=== PATIENT | male | born 1980 | race Two or more races ===

== ENCOUNTER 2021-07-11 06:46 | Emergency (ER) | payer OTHER, SELFPAY ==
[2021-07-11 06:53] VITALS: BP 126/84; PULSE 102; RESP 15; TEMP 36.1; O2SAT 98; BMI 28.3
--- NOTE | 2021-07-11 08:51 | ED_ITS ---
HPI - Allergic Reaction General Chief complaint: Allergic Reaction Stated complaint: allergic reaction to granola bar? rash all over Time Seen by Provider: 07/11/21 08:05 Source: patient Mode of arrival: ambulatory History of Present Illness HPI narrative: 41-year-old male with no significant past medical history presenting to the ED complaining of allergic reaction at 3:00 a.m. s/p eating granola bar with almonds. Reports hives to entire torso and upper/lower extremities. Admits to taking 25mg of Benadryl [employer] with symptomatic improvement. Denies known allergies or similar symptoms in the past. Denies oral swelling, drooling, coughing, wheezing, SOB MD complaint: allergic reaction and hives Onset (ago): hour(s) Exposure: food Related Data Previous Rx's Medication Instructions Recorded diphenhydramine HCl 25 mg capsule 25 mg PO Q6H PRN #14 cap 07/11/21 (Benadryl) prednisone 20 mg tablet 40 mg PO DAILY 4 Days #8 tab 07/11/21 prednisone 20 mg tablet 40 mg PO DAILY 5 Days #10 tab 07/11/21 Allergies Allergy/AdvReac Type Severity Reaction Status Date / Time almond [ALMOND] Allergy Unknown SCRATCHY Verified 07/11/21 06:59 THROAT SEAFOOD Allergy Unknown SWELLING/RA Uncoded 03/15/20 19:31 Review of Systems Review of Systems: Constitutional: No Fever, No Chills ENT/Mouth: No Ear Pain, No Nasal Congestion, No Sinus Pain, No Hoarseness, No sore throat, No Swallowing Difficulty Cardiovascular: No Chest Pain, No SOB Respiratory: No Cough, No Sputum, No Wheezing Gastrointestinal: No Nausea, No Vomiting, No Abdominal pain Musculoskeletal: No joint pain, No Myalgias, No Joint Swelling Skin: No Skin Lesions, + rash Neuro: No Weakness Yes all other systems are reviewed and are negative [facility] Past Medical History Attestation statement: The following information was validated with the patient. Social History Social History Advance Directives: Yes Advance Directives Information Provided: Yes Advance Directives on File: No Physical Exam Vital Signs: Vital Signs: Last Vital Signs Temp 96.9 F 07/11/21 06:53 Pulse 102 H 07/11/21 06:53 Resp 15 07/11/21 06:53 BP 126/84 07/11/21 06:53 Pulse Ox 98 07/11/21 06:53 BMI result Body Mass Index 28.3 Const: General: cooperative, healthy appearing and no acute distress Orientation/consciousness: patient oriented x3 Limitations: no limitations HENMT: Head: Yes normal to inspection Ears: hearing grossly normal bilaterally General nose exam: Normal external nose present Face and sinus: Yes normal facial exam Throat: Yes posterior oropharynx normal, Yes tonsils normal, Yes uvula midline, No peritonsillar mass, No uvula laterally displaced and No uvular edema Eyes: General: appearance normal, both eyes and all related structures EOM: EOMs intact bilaterally Neck: Neck: Yes normal visual inspection, Yes no meningeal signs, Yes trachea midline and No anterior neck swelling Resp: Effort & Inspection: normal respiratory effort, no respiratory distress and no stridor Auscultation: clear to auscultation bilaterally, no crackles, no rales, no rhonchi and no wheezes Cardio: Rate: regular rate Heart sounds: S1 normal heart sound present and S2 normal heart sound present Skin: Other: + faint hives noted to torso. No palm/sole involvement Wounds: no wounds Neuro: General: patient oriented x3 and no meningeal signs Gait exam (Neuro): Normal gait present Extrem: General: Yes normal to inspection MDM - Allergic Reaction MDM Narrative Medical decision making narrative: 41-year-old male with no significant past medical history presenting to the ED complaining of allergic reaction at 3:00 a.m. s/p eating granola bar with almonds. On exam mildly tachycardic, NAD, nontoxic appearing, talking in complete sentences, no respiratory distress, f aint hives noted to torso. No intraoral involvement, uvula midline, lungs CTA. Likely allergic reaction Plan: Prednisone, patient requesting COVID-19 testing Differential Diagnosis Differential diagnosis: Likely allergic reaction Medical Records Attestation: I reviewed the patient's medical records. Lab Data Attestation: I reviewed the patient's lab results. Discharge Plan Discharge Clinical Impression: Allergic reaction Qualifiers: Encounter type: initial encounter Qualified Code(s): T78.40XA - Allergy, unspecified, initial encounter Patient Disposition: Home, Self-Care Instructions: General Allergic Reaction (ED), Allergy Testing (ED) Additional Instructions: Prednisone as a steroid, please take as prescribed this will help with Allergic reaction. Her given the 1st dose today in the emergency department. In addition take Benadryl as needed every 6 hours for allergy symptoms. You should follow-up with an software project manager for allergy testing. If he develops shortness of breath, throat closing sensation, oral swelling, Diffuse worsening hives please return to the ED Prescriptions: New prednisone 20 mg tablet 40 mg PO DAILY 5 Days Qty: 10 RF: 0 diphenhydramine HCl [Benadryl] 25 mg capsule 25 mg PO Q6H PRN (Reason: allergic reaction) Qty: 14 RF: 0 prednisone 20 mg tablet 40 mg PO DAILY 4 Days Qty: 8 RF: 0 Referrals: Sylvester Hicks DO [Physician] - 2 days
[2021-07-11] MEDS: predniSONE 20 MG TABLET 40 MG PO (09:04)
--- NOTE | 2021-07-11 09:13 | PC.NURSE ---
PT REFUSED PO PREDNISONE. HE BECAME AGITATED ABOUT NOT HAVING HIS COVID TEST. THIS RN UNAWARE THAT HE REQUIRED ONE. FITZPATRICK SWAB OBTAINED. PT DISCHARGED PROVIDER STATES SHE WILL CALL WITH RESULTS. CONTINUED TO REFUSE MEDS.
[2021-07-11 09:52] LABS: COVID-19 Test Negative (Negative)
== END 2021-07-11 09:31 | disposition home or self-care (01) ==
PROVIDERS: Physician Assistant; Emergency Provider Emergency Medicine
DX: L50.9 Urticaria, unspecified (principal); R00.0 Tachycardia, unspecified; T78.1XXA Other adverse food reactions, not elsewhere classified, initial encounter; X58.XXXA Exposure to other specified factors, initial encounter; Z20.822 Contact with and (suspected) exposure to COVID-19
CPT/HCPCS: 87635; 99283

== ENCOUNTER 2021-12-22 03:30 | Emergency (ER) | payer OTHER, SELFPAY ==
[2021-12-22 04:07] VITALS: BP 131/82; PULSE 82; RESP 16; TEMP 36.8; O2SAT 98; BMI 28.3
--- NOTE | 2021-12-22 04:40 | ED.DENTAL ---
HPI - Dental/Oral General Chief complaint: Dental/Oral Stated complaint: Dental Pain Time Seen by Provider: 12/22/21 04:33 Source: patient Mode of arrival: ambulatory Limitations: no limitations History of Present Illness HPI Narrative: dental pain facial swelling yesterday Location: Tooth # (3/4) Onset (ago): hour(s) (yesterday) Duration: worsening Severity: moderate Relieving factors: nothing Exacerbating factors: chewing and cold Context: history of dental caries Associated symptoms: gum swelling Treatment prior to arrival: none Related Data Previous Rx's Medication Instructions Recorded diphenhydramine HCl 25 mg capsule 25 mg PO Q6H PRN allergic reaction 07/11/21 (Benadryl) #14 caps prednisone 20 mg tablet 40 mg PO DAILY 4 days #8 tabs 07/11/21 prednisone 20 mg tablet 40 mg PO DAILY 5 days #10 tabs 07/11/21 amoxicillin 875 mg-potassium 1 tab PO BID #14 tabs 12/22/21 clavulanate 125 mg tablet Allergies Allergy/AdvReac Type Severity Reaction Status Date / Time almond [ALMOND] Allergy Unknown SCRATCHY Verified 07/11/21 06:59 THROAT SEAFOOD Allergy Unknown SWELLING/RA Uncoded 03/15/20 19:31 Review of Systems Review of Systems: Constitutional : No Fever, No Chills ENT/Mouth : No swallowing difficulty, no change in voice, positive dental pain, positive jaw pain, positive facial swelling Eyes: No Eye Pain, No Swelling Cardiovascular : No Chest Pain, No SOB Respiratory : No Cough, No Sputum Gastrointestinal : No Nausea, No Vomiting, No Diarrhea Genitourinary : No Dysuria Musculoskeletal : No Myalgias Skin : No rash Neuro : No Weakness, No Numbness, No Headache PMFSH Past Medical History Attestation statement: The following information was validated with the patient. Medical History No pertinent past medical history Social History Social History (Updated 12/22/21 @ 04:42 by Jolene Sim DO) Patient Tobacco Use Status: Tobacco use Unknown Advance Directives: No Physical Exam Vital Signs: Vital Signs: Last Vital Signs Temp 98.3 F 12/22/21 04:07 Pulse 82 12/22/21 04:07 Resp 16 12/22/21 04:07 BP 131/82 12/22/21 04:07 Pulse Ox 98 12/22/21 04:07 O2 Del Method 12/22/21 04:07 BMI result Body Mass Index 28.3 Appearance: Alert. Oriented X3. No acute distress. Eyes: Pupils equal, round and reactive to light. ENT: R cheek swelling noted but no erythema no trismus no muffled voice tolerating secretions dental caries noted upper R molars, fluctuant area noted R upper molars Neck: Normal inspection. Neck supple. CVS: Pulses normal. Respiratory: No respiratory distress. Abdomen: atraumatic Skin: Skin warm and dry. Normal skin color. Extremities: No lower extremity edema. Neuro: Oriented X 3. No motor deficit. No sensory deficit. MDM - Dental/Oral MDM Narrative Medical decision making narrative: 41 yo male otherwise healthy here with c/o R upper molar caries now with swelling to face likely abscess at this time will start on oral antibiotics and attempt to I+D area. no trismus no concern for deeper space infection. Procedures Abscess I/D Site: oral (right upper molar) Side (if applicable): right Local Anesthetic: lidocaine 1% Amount of anesthesia used (mL): 2 Technique: needle aspiration Amount of fluid expressed (mL): 3 Sent for culture/gram staining?: No Irrigation: No Packing used?: none Discharge Plan Discharge Clinical Impression: Dental abscess Patient Disposition: Home, Self-Care Instructions: Dental Abscess (ED) Additional Instructions: return to ED for any worsening symptoms or concerns return for worsening swelling fevers, or any other concerns follow up with a dentist Prescriptions: New amoxicillin-pot clavulanate 875-125 mg tablet 1 tab PO BID Qty: 14 0RF No Action prednisone 20 mg tablet 40 mg PO DAILY 5 Days Qty: 10 0RF diphenhydramine HCl [Benadryl] 25 mg capsule 25 mg PO Q6H PRN (Reason: allergic reaction) Qty: 14 0RF prednisone 20 mg tablet 40 mg PO DAILY 4 Days Qty: 8 0RF
[2021-12-22] MEDS: Lidocaine HCl 1 % MPF 5 ML VIAL SUBCUT (04:44)
[2021-12-22] MEDS: Amoxicillin/Potassium Clav 875 MG TABLET PO (04:44)
== END 2021-12-22 05:48 | disposition home or self-care (01) ==
PROVIDERS: Emergency Provider Emergency Medicine
DX: K04.7 Periapical abscess without sinus (principal)
CPT/HCPCS: 41800; 99282; 99283; 99284

== ENCOUNTER 2022-11-06 08:30 | Emergency (ER) | payer OTHER, SELFPAY ==
[2022-11-06 08:42] VITALS: BP 114/75; PULSE 82; RESP 19; TEMP 36.8; BMI 29.9
--- NOTE | 2022-11-06 09:09 | ED.GENADULT ---
HPI - General Adult General Chief complaint: Animal Bite Stated complaint: spider bite Time Seen by Provider: 11/06/22 09:01 Source: patient Mode of arrival: ambulatory Limitations: no limitations History of Present Illness HPI narrative: Patient presents with insect bite to the right forearm. Symptoms started 2 days ago. He reported significant swelling which has gotten better. He also reports that having drain pus. Denies any fevers or chills. Pain is mild to moderate. Worse with palpation. He does not radiate. There is no numbness or tingling. Denies any fevers or chills. He did not see what kind of insect bit him. Related Data Previous Rx's Medication Instructions Recorded doxycycline hyclate 100 mg tablet 100 mg PO BID #20 tabs 11/06/22 Allergies Allergy/AdvReac Type Severity Reaction Status Date / Time almond [ALMOND] Allergy Unknown SCRATCHY Verified 07/11/21 06:59 THROAT SEAFOOD Allergy Unknown SWELLING/RA Uncoded 03/15/20 19:31 [facility] Past Medical History Medical History No pertinent past medical history Social History Social History Patient Tobacco Use Status: Tobacco use Unknown Advance Directives: No Physical Exam ED Vital Signs: Vital Signs - 24 hr 11/06/22 08:42 Temperature 98.3 F Pulse Rate 82 Respiratory Rate 19 Blood Pressure 114/75 Oxygen Delivery Method Room Air BMI result Body Mass Index 29.9 GEN: Well developed, no acute distress, alert, oriented HEENT: Normocephalic, atraumatic, normal external ears, nose appears normal Eyes: Normal to appearance Neck: Supple, no lymphadenopathy Respiratory: Talks in complete sentences, no respiratory distress Extremities: No clubbing cyanosis or edema Neurologic: No focal neurologic deficits, cranial nerves 2-12 intact, gait normal Skin: Right proximal volar forearm area of induration, redness and swelling. There is no fluctuance surface. Course Course Course Narrative: 42-year-old male presents with cellulitis/abscess of the right forms following a spider or other insect bite. He is otherwise neurovascular intact. There is no fevers or chills. There is no lymphangitis spread. Will start patient on oral antibiotics. Patient would like to defer an I&D at this time. He will return for any worsening symptoms. Discharge instructions were discussed with the patient. All questions were addressed and answered Medical Decision Making Medical Decision Making MDM Narrative: 42-year-old male presents with an insect bite to the right volar forearm. Area was indurated and erythematous. There were no fluctuance surfaces. Patient deferred I&D at this time. He will do warm compresses several times daily, oral antibiotics, Tylenol, ibuprofen as needed for pain he was given strict return instructions. Differential Diagnosis Differential Diagnoses: The differential diagnosis associated with the presentation includes (Inflammatory reaction, cellulitis, abscess) Prescription Management I considered prescription management with: Pain Medication and Antibiotic Discharge Plan Discharge Clinical Impression: Spider bite, Cellulitis, Abscess Patient Disposition: Home, Self-Care Instructions: Cellulitis (DC), Insect Bite or Sting (ED), Abscess (ED) Additional Instructions: Pure seen today for an insect bite. You reported drainage from the insect bite area. At this time, we are not opening up and draining even as your reporting self draining. I would recommend warm compresses several times daily. Will start on oral antibiotics. For any worsening symptoms, increased swelling, uncontrolled pain, please seek emergent attention in the emergency department Prescriptions: New doxycycline hyclate 100 mg tablet 100 mg PO BID Qty: 20 0RF Discontinued amoxicillin-pot clavulanate 875-125 mg tablet 1 tab PO BID Qty: 14 0RF prednisone 20 mg tablet 40 mg PO DAILY 5 Days Qty: 10 0RF diphenhydramine HCl [Benadryl] 25 mg capsule 25 mg PO Q6H PRN (Reason: allergic reaction) Qty: 14 0RF prednisone 20 mg tablet 40 mg PO DAILY 4 Days Qty: 8 0RF
[2022-11-06] MEDS: Doxycycline Monohydrate 100 MG CAPSULE PO (09:22)
== END 2022-11-06 09:30 | disposition home or self-care (01) ==
PROVIDERS: Emergency Provider Emergency Medicine
DX: L03.113 Cellulitis of right upper limb (principal); R22.31 Localized swelling, mass and lump, right upper limb
CPT/HCPCS: 99282; 99283